=== PATIENT | male | born 1990 | race Caucasian/White ===

== ENCOUNTER 2020-12-03 21:14 | Emergency (ER) | payer OTHER ==
[2020-12-03 23:45] LABS: BASOPHIL 0.2 % (0-2); EOSINOPHIL 1.2 % (0-5); HCT 41.8 % (42.0-52.0); HGB 14.7 g/dl (13.2-18.0); LYMPHOCYTE 38.3 % (15-48); MCH 30.1 pg (25.0-31.0); MCHC 35.2 g/dL (32.0-36.0); MCV 85.5 fL (78.0-100.0); MONOCYTE 13.3 % (0-12); MPV 9.7 fL (6.0-9.5); NEUTROPHIL 46.6 % (41-80); NRBC 0; PLT 241 K/uL (150-400); RBC 4.89 M/uL (4.70-6.00)
[2020-12-04 00:08] LABS: ALBUMIN 3.8 g/dL (3.4-5.0); BILIRUBIN - TOTAL 0.4 mg/dL (0.2-1.0); BUN/CREAT RATIO (CALC) 16.5 RATIO; C-REACTIVE PROTEIN 4.8 mg/dL (<=0.90); CREATININE 0.85 mg/dL (0.67-1.17); GLOBULIN (CALCULATION) 4.1 g/dL; POTASSIUM 3.8 mmol/L (3.5-5.1); TOTAL PROTEIN 7.9 g/dL (6.4-8.2)
[2020-12-04 00:19] LABS: INR 1.17 (0.9-1.2); PROTHROMBIN TIME 14.3 SECONDS (11.8-13.4)
[2020-12-04 00:20] LABS: D-DIMER 0.28 ug/mLFEU (0.00-0.41)
[2020-12-04] MEDS ORDERED: NORCO 5-325 TA1 EACH PO (03:14)
[2020-12-04] MEDS ORDERED: AZITHROMYCIN250 MG PO (03:14)
[2020-12-04] MEDS ORDERED: PULMICORT FLE180 MCG INH (03:14)
== END 2020-12-04 03:33 | disposition home or self-care (01) ==
LOC: FER 21:14
PROVIDERS: Emergency Medicine Emergency Medical Services
DX: J18.1 Lobar pneumonia, unspecified organism (principal); F17.200 Nicotine dependence, unspecified, uncomplicated
CPT/HCPCS: 36415; 71045; 80053; 82728; 83690; 84484; 85025; 85379; 85610; 85730; 86140; 93005; J2270; J2405; J7120